=== PATIENT | male | born 1950 | race Caucasian/White ===

== ENCOUNTER 2018-11-29 11:52 | Day surgery (SDC) | payer OTHER ==
[~2018-11-29] VITALS: Ht 167.6 cm; Wt 70.3 kg
[2018-11-29] MEDS ORDERED: fentaNYL 0.05 MG/ML VIAL ONE (12:37)
[2018-11-29] MEDS ORDERED: MIDAZOLAM 2 MG/2 ML VIAL ONE (12:37)
[2018-11-29] MEDS ORDERED: LIDOCAINE 2% 100 MG/5 ML UJET TP ONE (12:41)
[2018-11-29] MEDS ORDERED: fentaNYL 0.05 MG/ML VIAL IVP ONE (12:52)
== END 2018-11-29 13:40 | disposition home or self-care (01) ==
LOC: MDS 11:52 → MMU 11:53 → MDS 13:40
PROVIDERS: ATTEND Internal Medicine Gastroenterology
DX: Z12.11 Encounter for screening for malignant neoplasm of colon (principal); D12.3 Benign neoplasm of transverse colon; I10 Essential (primary) hypertension; E11.9 Type 2 diabetes mellitus without complications; Z80.0 Family history of malignant neoplasm of digestive organs; Z79.82 Long term (current) use of aspirin; Z79.899 Other long term (current) drug therapy; Z79.84 Long term (current) use of oral hypoglycemic drugs; E66.3 Overweight; Z98.890 Other specified postprocedural states
CPT/HCPCS: 45385; J3010; J2250